=== PATIENT | male | born 2000 | race Caucasian/White ===

== ENCOUNTER 2022-07-06 11:19 | Day surgery (SDC) | payer OTHER, SELFPAY ==
[2022-07-06] VITALS (7 sets, daily range): BP systolic 96–131; BP diastolic 47–85; PULSE 73–93; RESP 12–169; TEMP 36.4–37; O2SAT 95–100; BMI 53.7
--- NOTE | 2022-07-06 | PATH_ITS ---
[facility] Accession Number: [id number] No. of containers..01 Tissue . 01 Material submitted: . colon - RANDOM COLON BIOPSIES . 01 Clinical history: . R/O COLITIS . 01 Diagnosis: Random Colon, Biopsies: Colonic mucosa with no diagnostic abnormality. Negative for active, chronic, and microscopic colitis. Negative for dysplasia and malignancy. . MRV 07/12/2022 1452 Local . 01 Electronically signed: . Redd Arthur MD, PhD, Pathologist NPI- [id number] . 01 Gross description: . RANDOM COLON BIOPSIES: Received in formalin are 4 fragment(s) of olivarez, soft tissue measuring 0.2 x 0.2 x 0.2 cm to 0.3 x 0.2 x 0.2 cm submitted entirely in 1 cassette(s) /EDUAR 07/07/20221940 Local . 01 Pathologist provided ICD-10: R19.7 . 01 CPT . 752576 Specimen Comment: A courtesy copy of this report has been sent to [phone] Performed at: 01 [facility] [address] [place] [address], [place], [place] [id number] MD Marlo Garg MD Phone: [phone]
--- NOTE | 2022-07-06 11:58 | PM.HP.1 ---
History of Present Illness History of Present Illness Date Patient Seen: 07/06/22 Chief complaint: Dx Colonoscopy Narrative: Loose stools/diarrhea Patient History Family & Social History Tobacco & Substance use: Tobacco type cigarettes Smoking Status Smoker, status unknown alcohol intake frequency a few times a week Exam Narrative Exam Narrative: Oropharynx free of lesions Chest clear to auscultation percussion Cardiac exam reveals no S3 or murmur Assessment & Plan Assessment & Plan narrative: Loose stool/diarrhea rule out Crohn's disease. Risks, benefits, alternatives have been explained. Time Spent With Patient Critical Care time: I spent a total of [] minutes of critical care time on this patient's care today; this time is exclusive of procedural time.
--- NOTE | 2022-07-06 12:00 | PM.OP.COLON ---
Operative Date/Time/Diagnoses Date of procedure: 07/06/22 Pre-op diagnosis: See indication and findings Procedure & Clinicians Study performed: Colonoscopy Indications: Loose stool Surgeon: Vince Navarrete Procedure Notes Procedure in detail: After informed consent was obtained the patient was placed in left lateral decubitus position. The video colonoscope was introduced in the rectum slowly advanced cecum. Ileocecal valve was identified and intubated. Preparation was good. On slow withdrawal mucosa was carefully examined. The scope was removed. The patient tolerated procedure well. Blood loss none Complications none Sedation propofol Findings 1. Normal terminal ileum 2. Normal colonoscopy to cecum. Random biopsies taken to rule out microscopic colitis I have Mr. Lawton come back and see me 1 last time in the office to discuss his symptoms.
[2022-07-06 12:17] LABS: COVID19 -Nasal RAPID Negative (Negative)
[2022-07-06] MEDS: LACTATED RINGERS 1,000 ML 42 ML IV (12:24)
--- NOTE | 2022-07-06 12:48 | SUR.PREOP ---
Pt reported a runny nose that felt like post nasal drip on admit that started 1 week ago . No other signs/symptoms of cold or flu. No fever. Dr Navarrete notified. Covid test done and negative.
--- NOTE | 2022-07-06 13:09 | SUR.PHASEI ---
Assumed care. Patient sleeping.
== END 2022-07-06 13:45 | disposition home or self-care (01) ==
PROVIDERS: Referring Provider Internal Medicine Gastroenterology; Visit Provider Internal Medicine Gastroenterology
PROC: 0DJD8ZZ Inspection of Lower Intestinal Tract, Via Natural or Artificial Opening Endoscopic (ICD-10-PCS; CPT 45378; principal; 2022-07-06 13:00)
DX: R19.7 Diarrhea, unspecified (principal); Z20.822 Contact with and (suspected) exposure to COVID-19
CPT/HCPCS: 45380; 87635; J2704